=== PATIENT | male | born 2005 | race Hispanic/Latino ===

== ENCOUNTER 2025-09-25 17:29 | Emergency (ER) | payer OTHER, SELFPAY ==
[2025-09-25 17:49] VITALS: BP 136/89; PULSE 73; RESP 16; TEMP 36.6; O2SAT 100
--- NOTE | 2025-09-25 18:06 | ED.URI ---
HPI - URI/Sore Throat General Chief Complaint: Upper Respiratory Infection Stated Complaint: SORE THROAT/SINUS CONGESTION/CHEST TIGHT/COUGH Time Seen by Provider: 09/25/25 17:55 Source: patient and RN notes reviewed Mode of arrival: ambulatory Limitations: no limitations History of Present Illness HPI Narrative: 19-year-old male patient presents today complaining of 3 day history of sore throat, congestion, cough. Denies fever, shortness of breath, known sick contacts. He has been using Mucinex with some mild relief. No history of asthma. He is a nonsmoker. No recent antibiotic use. Related Data Allergies Allergy/AdvReac Type Severity Reaction Status Date / Time No Known Allergies Allergy Verified 09/25/25 17:42 [facility] Comments At time of signature, I have reviewed and agree with nursing past medical, surgical, social and family history unless otherwise noted. Please see nursing chart for further information. There is no relevant family history pertinent to the presenting complaint Exam Narrative: GENERAL: Mildly ill-appearing, well-nourished, and in no acute distress. HEAD: Normocephalic, atraumatic. EYES: EOMI. No redness or drainage. Conjunctivae normal. ENT: Mucous membranes pink and moist. Nares congested. No rhinorrhea. TMs normal bilaterally. Throat mildly erythematous without edema or exudate. Uvula midline. NECK: Normal AROM. Supple. No lymphadenopathy. CHEST: No respiratory distress. Clear to auscultation. HEART: Regular rate and rhythm. No murmur appreciated. EXTREMITIES: Normal range of motion. No edema. SKIN: Warm, dry, no rash. Capillary refill normal. Normal skin turgor. NEURO: No focal deficits. Alert and oriented x3. Gait steady. PSYCH: Normal affect. No signs of depression or anxiety. Course Course Level of Care: Express Care Visit Vital Signs Vital signs: Vital Signs Temperature 97.9 F 09/25/25 17:49 Pulse Rate 73 09/25/25 17:49 Respiratory Rate 16 09/25/25 17:49 Blood Pressure 136/89 09/25/25 17:49 Pulse Oximetry 100 09/25/25 17:49 Temperature 97.9 F 09/25/25 17:49 Pulse Rate 73 09/25/25 17:49 Respiratory Rate 16 09/25/25 17:49 Blood Pressure 136/89 09/25/25 17:49 Pulse Oximetry 100 09/25/25 17:49 Reviewed MDM - URI/Sore Throat MDM Narrative Medical decision making narrative: 19-year-old male patient presents today complaining of 3 day history of sore throat, congestion, cough. Denies fever, shortness of breath, known sick contacts. He has been using Mucinex with some mild relief. No history of asthma. He is a nonsmoker. No recent antibiotic use. Upon exam, patient is mildly ill appearing with some nasal congestion and mild erythema in the throat without edema or exudate. COVID swab negative, influenza negative, rapid strep positive. Prescription for amoxicillin sent to pharmacy. Patient agrees with plan. Vital signs stable. Anticipatory guidance given. Differential Diagnosis Differential diagnosis: Likely upper respiratory infection, viral infection, influenza, pharyngitis and other (Strep throat, COVID) Lab Data Attestation: I reviewed the patient's lab results. Lab results narrative: Influenza negative COVID negative rapid strep positive Critical Care Time Critical Care Time Critical Care Time: No Discharge Plan Discharge Clinical Impression: Strep throat Patient Disposition: Home Condition: Stable Instructions: Antibiotic Form, Strep Throat (ED) Additional Instructions: You have tested positive for strep throat. Please take the amoxicillin as prescribed until gone. You will be contagious for 24 hours after starting the medication. Take Tylenol or Ibuprofen for pain or fever, if able. Rest and stay hydrated. Follow up with your PCP in 3 days if symptoms are not improving. Go to the ER immediately if you develop worsening symptoms such as shortness of breath, difficulty swallowing. Patient Language: Estonian Prescriptions: New amoxicillin 875 mg tablet 875 mg PO Q12H 10 Days Qty: 20 0RF Follow-up/Referrals: PHYSICIAN,[employer] [Primary Care Provider, Internal Medicine] Stand Alone Forms: Work/School Release IP Time of Disposition: 18:09
[2025-09-25 18:12] LABS: EDSTREPNEGPOS1 Positive (Negative)
[2025-09-25 18:13] LABS: EDCOVIDSCREEN Negative (Negative); EDINFLUASCREEN Negative (Negative); EDINFLUBSCREEN Negative (Negative)
[2025-09-25 18:14] LABS: EDCOVIDSCREEN Negative (Negative); EDINFLUASCREEN Negative (Negative); EDINFLUBSCREEN Negative (Negative); EDSTREPNEGPOS1 Positive (Negative)
== END 2025-09-25 18:15 | disposition home or self-care (01) ==
PROVIDERS: Emergency Provider Nurse Practitioner
DX: J02.0 Streptococcal pharyngitis (principal); Z20.822 Contact with and (suspected) exposure to COVID-19
CPT/HCPCS: 87426; 87804; 87880; 99203; G0463